=== PATIENT | male | born 1995 | race Caucasian/White ===

== ENCOUNTER 2016-09-22 00:57 | Emergency (ER) | payer OTHER | END 2016-09-22 01:30 | disposition home or self-care (01) | LOC: ER 00:57 | DX: S01.01XA Laceration without foreign body of scalp, initial encounter (principal); J40 Bronchitis, not specified as acute or chronic; Z90.89 Acquired absence of other organs; Z88.6 Allergy status to analgesic agent; Z79.899 Other long term (current) drug therapy; W22.8XXA Striking against or struck by other objects, initial encounter; Y92.69 Other specified industrial and construction area as the place of occurrence of the external cause; Y99.0 Civilian activity done for income or pay ==